=== PATIENT | male | born 1990 | race Hispanic/Latino ===

== ENCOUNTER 2019-12-22 14:25 | Outpatient (CLI) | payer OTHER ==
--- NOTE | 2019-12-22 15:03 | RAD ---
EXAM: Left rib series HISTORY: Rib pain with coughing COMPARISON: None FINDINGS: Multiple views of the left ribs shows no evidence of displaced rib fracture. No underlying pleural th ickening or pneumothorax are seen. IMPRESSION: 1. No evidence of displaced rib fracture.
== END 2019-12-22 14:26 | disposition home or self-care (01) ==
LOC: SCSRAD 14:25
PROVIDERS: ATTEND Family Medicine
DX: R07.9 Chest pain, unspecified (principal)